=== PATIENT | female | born 1950 | race Caucasian/White ===

== ENCOUNTER 2023-06-10 14:00 | Emergency (ER) | payer BC ==
[~2023-06-10] VITALS: Ht 162.6 cm; Wt 95.6 kg
[2023-06-10 14:07] VITALS: TEMP 98
[2023-06-10 14:33] LABS: BASOPHILS % (AUTO) 0.1 % (0-1); EOSINOPHILS % (AUTO) 0.5 % (0-6); HEMATOCRIT 44.6 % (35.0-45.0); HEMOGLOBIN 15.1 g/dl (12.0-16.0); LYMPHOCYTES # (AUTO) 0.8 X10'3 (1.1-4.8); LYMPHOCYTES % (AUTO) 13.5 % (21-51); MEAN CORPUSCULAR HEMOGLOBIN 32.3 PG (27.0-31.0); MEAN CORPUSCULAR HGB CONC 33.9 g/dL (33.0-36.5); MEAN CORPUSCULAR VOLUME 95.2 FL (78-98); MEAN PLATELET VOLUME 6.9 FL (7.4-10.4); MONOCYTES # (AUTO) 0.1 X10'3 (0-0.9); MONOCYTES % (AUTO) 1.7 % (2-12); NEUTROPHILS # (AUTO) 5.3 X10'3 (1.8-7.7); NEUTROPHILS % (AUTO) 84.2 % (42-75); PLATELET COUNT 150 X10'3 (140-440); RED BLOOD COUNT 4.68 X10'6 (4.20-5.60); RED CELL DISTRIBUTION WIDTH 14.5 % (11.5-14.5); WHITE BLOOD COUNT 6.3 X10'3 (4.5-11.0)
[2023-06-10 14:54] LABS: ALBUMIN 3.1 G/DL (3.4-5.0); ANION GAP 10 (8-16); BLOOD UREA NITROGEN 12 MG/DL (7-18); BUN/CREATININE RATIO 13.2 (10.0-20.0); CALCIUM 8.8 MG/DL (8.5-10.1); CHLORIDE 103 MMOL/L (99-107); CREATININE 0.91 MG/DL (0.40-0.90); GLUCOSE 182 MG/DL (70-104); POTASSIUM 4.6 MMOL/L (3.5-5.1); PRO BRAIN NATRIURETIC PEPTIDE 135 PG/ML (0-450); SODIUM 138 MMOL/L (135-145); TOTAL CARBON DIOXIDE 25.3 MMOL/L (24-32); eCRCL 46 ML/MIN; eGFR 60 ML/MIN
[2023-06-10 15:24] VITALS: BP 183/87; PULSE 102; RESP 16; O2SAT 98
== END 2023-06-10 15:40 | disposition home or self-care (01) ==
LOC: ER 14:01
DX: R55 Syncope and collapse (principal); R42 Dizziness and giddiness; R06.00 Dyspnea, unspecified; Z88.0 Allergy status to penicillin; Z88.5 Allergy status to narcotic agent
CPT/HCPCS: 36415; 71045; 80048; 83880; 84484; 85025; 93005; 99285

== ENCOUNTER 2024-03-15 15:52 | Emergency (ER) | payer MEDICARE, BC ==
[~2024-03-15] VITALS: Ht 162.6 cm; Wt 90.9 kg
[2024-03-15 16:15] VITALS: TEMP 97.7
[2024-03-15] MEDS: ketorolac trometh 30MG/ML vial 30 MG/ML VIAL IM ONE (20:07)
[2024-03-15] MEDS: carVEDilol 12.5mg tablet PO SCH (20:09)
[2024-03-15] MEDS: ketorolac trometh 15mg/ml vial 15 MG/ML ML IM ONE (20:09)
[2024-03-15 20:36] VITALS: BP 108/87; PULSE 102; RESP 16; O2SAT 98
== END 2024-03-15 21:13 | disposition home or self-care (01) ==
LOC: ER 15:53
DX: S62.397A Other fracture of fifth metacarpal bone, left hand, initial encounter for closed fracture (principal); I10 Essential (primary) hypertension; Z88.0 Allergy status to penicillin; Z88.5 Allergy status to narcotic agent; W18.39XA Other fall on same level, initial encounter; Y93.89 Activity, other specified; Y92.89 Other specified places as the place of occurrence of the external cause; Y99.8 Other external cause status
CPT/HCPCS: 29125; 73090; 73110; 96372; 99284; A6449; J1885